=== PATIENT | male | born 1935 | race Caucasian/White ===

== ENCOUNTER 2017-06-06 19:11 | Emergency (ER) | payer MEDICARE, BC ==
[2017-06-06] MEDS ORDERED: Sodium Chloride 0.9% 10 ML Syringe FLUSH PRN (19:31)
[2017-06-06] MEDS ORDERED: Sodium Chloride 0.9% 1,000 ML IV SCH (20:15)
--- NOTE | 2017-06-06 21:05 | EDM.PDOC ---
ED HPI GENERAL MEDICAL PROBLEM - General Chief Complaint: Neurological Problem Stated Complaint: FALL Time Seen by Provider: 06/06/17 19:27 Source of Information: Reports: Patient, Family ( and Neighbors), RN History Limitations: Reports: No Limitations - History of Present Illness INITIAL COMMENTS - FREE TEXT/NARRATIVE: Syncope ; this is a 81 year old male present to ER via Family and friends. Today at 1840 pm, he was grilling at the [place], when he fainted. He fell on the grill, knocking it over, he had brief LOC, no tremors. After waking up, was momentarily confused and slurred speech. This resolved prior to arrival at ER. At this time, he has no complaints. denies chest pain, shortness of breath, headache, or any complaints. Onset: Sudden Onset Date: 06/06/17 Onset Time: 18:40 Duration: Resolved Prior to Arrival Location: Reports: Generalized Severity: Mild Improves with: Reports: None Worsens with: Reports: None Associated Symptoms: Reports: No Other Symptoms - Related Data Allergies Allergy/AdvReac Type Severity Reaction Status Date / Time amoxicillin [Amoxicillin] Allergy Nausea and Verified 06/06/17 19:21 Vomiting amoxicillin trihydrate Allergy Vomiting Verified 06/06/17 19:21 [From Augmentin] potassium clavulanate Allergy Nausea and Verified 06/06/17 19:21 [From Augmentin] Vomiting dust mites Allergy Sneezing Uncoded 09/03/15 07:20 pollen Allergy Sneezing Uncoded 09/03/15 07:20 Home Meds: Home Meds Ascorbic Acid [Vitamin C] 1,000 mg PO DAILY 10/08/13 [History] Aspirin [Halfprin] 81 mg PO DAILY 10/08/13 [History] Cyanocobalamin (Vitamin B-12) [Vitamin B-12] 500 mcg PO TID 10/08/13 [History] Multivitamin with Minerals [Multiple Vitamin] 1 tab PO DAILY 10/08/13 [History] Saw [place] Fruit [Saw [place]] 1 tab PO QID 10/08/13 [History] Timolol Maleate [Timoptic 0.5% Ophth Soln] 1 drop EYEBOTH BEDTIME 10/08/13 [ History] Triamcinolone Acetonide [Kenalog 0.1% Oint] 1 applic TOP BID PRN 10/08/13 [ History] Folic Acid 0.4 mg PO TID 09/01/15 [History] L.acidoph,Paracasei, B.lactis [Probiotic] 1 cap PO DAILY 09/01/15 [History] Ubidecarenone [Coq-10] 200 mg PO TID 09/01/15 [History] Past Medical History HEENT History: Reports: Allergic Rhinitis, Cataract, Glaucoma, Hard of Hearing, Impaired Vision, Sinusitis Gastrointestinal History: Reports: Chronic Constipation Musculoskeletal History: Reports: Back Pain, Chronic, Osteoarthritis Neurological History: Reports: Head Trauma, Neuropathy, Peripheral - Past Surgical History HEENT Surgical History: Reports: Cataract Surgery, Tonsillectomy GI Surgical History: Reports: Colonoscopy Oncologic Surgical History: Reports: Biopsy of Breast Social & Family History - Tobacco Use Smoking Status *Q: Never Smoker Years of Tobacco use: 10 Used Tobacco, but Quit: Yes Month Tobacco Last Used: 11/1970 Second Hand Smoke Exposure: No - Alcohol Use Days Per Week of Alcohol Use: 7 Number of Drinks Per Day: 1 Total Drinks Per Week: 7 - Recreational Drug Use Recreational Drug Use: No - Living Situation & Occupation Living situation: Reports: Occupation: Retired (retired, lives on [facility] with .) ED RUST GENERAL - Review of Systems Review Of Systems: See Below Constitutional: Reports: No Symptoms HEENT: Reports: No Symptoms Respiratory: Reports: No Symptoms Cardiovascular: Reports: No Symptoms Endocrine: Reports: No Symptoms GI/Abdominal: Reports: No Symptoms : Reports: No Symptoms Musculoskeletal: Reports: No Symptoms Skin: Reports: Bruising, Wound (abrasion noted to left chest, left knee, right forearm) Neurological: Reports: Syncope Psychiatric: Reports: No Symptoms Hematologic/Lymphatic: Reports: No Symptoms Immunologic: Reports: No Symptoms - Physical Exam Exam: See Below Exam Limited By: No Limitations General Appearance: Alert, WD/WN, No Apparent Distress Eye Exam: Bilateral Eye: EOMI, Normal Inspection, PERRL Ears: Normal External Exam, Normal Canal, Hearing Grossly Normal, Normal TMs Nose: Normal Inspection, Normal Mucosa, No Blood Throat/Mouth: Normal Inspection, Normal Lips, Normal Teeth, Normal Gums, Normal Oropharynx, Normal Voice, No Airway Compromise Head Exam: Atraumatic, Normocephalic Neck: Normal Inspection Respiratory/Chest: No Respiratory Distress, Lungs Clear, Normal Breath Sounds, No Accessory Muscle Use, Chest Non-Tender Cardiovascular: Normal Peripheral Pulses, Regular Rate, Rhythm, No Edema, No Gallop, No JVD, No Murmur, No Rub GI/Abdominal: Normal Bowel Sounds, Soft, Non-Tender, No Organomegaly, No Distention, No Abnormal Bruit, No Mass (Male) Exam: Deferred Rectal (Males) Exam: Deferred Neuro Exam (Abbreviated): Alert, Oriented, CN II-XII Intact, Normal Cognition, Normal Reflexes, No Motor/Sensory Deficits Back Exam: Normal Inspection, Full Range of Motion, NT Extremities: Normal Inspection, Normal Range of Motion, Non-Tender, No Pedal Edema, Normal Capillary Refill Psychiatric: Normal Affect Skin Exam: Warm, Dry, Other (minor abrasions to right forearm, left lateral ribs , left knee.) EKG INTERPRETATION Rhythm: NSR [place]: Normal P-Wave: Present QRS: Normal ST-T: Normal QT: Normal Course - Vital Signs Last Recorded V/S: Last Vital Signs Temp 36.4 C 06/06/17 19:18 Pulse 66 06/06/17 20:47 Resp 16 06/06/17 20:47 BP 137/73 06/06/17 20:47 Pulse Ox 97 06/06/17 20:47 - Orders/Labs/Meds Orders: Active Orders 24 hr Category Date Time Status Cardiac Monitoring [RC] .As Directed Care 06/06/17 19:30 Active EKG Documentation Completion [RC] ASDIRECTED Care 06/06/17 19:31 Active Chest 2V [CR] Urgent Exams 06/06/17 19:30 Taken Head wo Cont [CT] Stat Exams 06/06/17 19:28 Taken Sodium Chloride 0.9% [Normal Saline] 1,000 ml Med 06/06/17 20:15 Active IV ASDIRECTED Sodium Chloride 0.9% [Saline Flush] Med 06/06/17 19:31 Active 10 ml FLUSH ASDIRECTED PRN Saline Lock Insert [OM.PC] Routine Oth 06/06/17 19:31 Ordered EKG 12 Lead [EK] Urgent Ther 06/06/17 19:29 Ordered Medication Orders Sodium Chloride (Normal Saline) 1,000 mls @ 500 mls/hr IV ASDIRECTED TONJA Last Admin: 06/06/17 20:11 Dose: 500 mls/hr Sodium Chloride (Saline Flush) 10 ml FLUSH ASDIRECTED PRN PRN Reason: Keep Vein Open Last Admin: 06/06/17 19:59 Dose: 10 ml Labs: Laboratory Tests 06/06/17 06/06/17 06/06/17 Range/Units 19:30 19:30 19:30 WBC 6.5 (4.5-11.0) K/uL RBC 4.82 (4.30-5.90) M/uL Hgb 15.8 H (12.0-15.0) g/dL Hct 47.8 (40.0-54.0) % MCV 99 H (80-98) fL MCH 33 H (27-31) pg MCHC 33 (32-36) % Plt Count 166 (150-400) K/uL Neut % (Auto) 39 (36-66) % Lymph % (Auto) 43 (24-44) % [place] % (Auto) 12 H (2-6) % Eos % (Auto) 5 H (2-4) % Baso % (Auto) 1 (0-1) % PT 11.4 (9.5-12.0) sec INR 1.06 (0.80-1.20) Sodium 142 (140-148) mmol/L Potassium 4.2 (3.6-5.2) mmol/L Chloride 106 (100-108) mmol/L Carbon Dioxide 29 (21-32) mmol/L Anion Gap 6.8 (5.0-14.0) mmol/L BUN 14 (7-18) mg/dL Creatinine 1.0 (0.8-1.3) mg/dL Est Cr Clr Drug Dosing 61.43 mL/min Estimated GFR (MDRD) > 60 (>60) Glucose 90 (74-106) mg/dL Calcium 8.8 (8.5-10.1) mg/dL Magnesium (1.8-2.4) mg/dL Total Bilirubin 0.4 (0.2-1.0) mg/dL AST 19 (15-37) U/L ALT 20 (12-78) U/L Alkaline Phosphatase 50 (46-116) U/L Troponin I (0.000-0.056) ng/mL Total Protein 8.0 (6.4-8.2) g/dL Albumin 3.8 (3.4-5.0) g/dL Globulin 4.2 H (2.3-3.5) g/dL Albumin/Globulin Ratio 0.9 L (1.2-2.2) Amylase (25-115) U/L Lipase (73-393) U/L TSH, Ultra Sensitive (0.358-3.740) uIU/mL Urine Color Urine Appearance Urine pH (4.5-8.0) Ur Specific [place] (1.008-1.030) Urine Protein (NEGATIVE) mg/dL Urine Glucose (UA) (NEGATIVE) mg/dL Urine Ketones (NEGATIVE) mg/dL Urine Occult Blood (NEGATIVE) Urine Nitrite (NEGAITVE) Urine Bilirubin (NEGATIVE) Urine Urobilinogen (NORMAL) mg/dL Ur Leukocyte Esterase (NEGATIVE) Urine RBC (0-5) Urine WBC (0-5) Ur Epithelial Cells Amorphous Sediment Urine Bacteria Urine Mucus 06/06/17 06/06/17 Range/Units 19:30 20:01 WBC (4.5-11.0) K/uL RBC (4.30-5.90) M/uL Hgb (12.0-15.0) g/dL Hct (40.0-54.0) % MCV (80-98) fL MCH (27-31) pg MCHC (32-36) % Plt Count (150-400) K/uL Neut % (Auto) (36-66) % Lymph % (Auto) (24-44) % [place] % (Auto) (2-6) % Eos % (Auto) (2-4) % Baso % (Auto) (0-1) % PT (9.5-12.0) sec INR (0.80-1.20) Sodium (140-148) mmol/L Potassium (3.6-5.2) mmol/L Chloride (100-108) mmol/L Carbon Dioxide (21-32) mmol/L Anion Gap (5.0-14.0) mmol/L BUN (7-18) mg/dL Creatinine (0.8-1.3) mg/dL Est Cr Clr Drug Dosing mL/min Estimated GFR (MDRD) (>60) Glucose (74-106) mg/dL Calcium (8.5-10.1) mg/dL Magnesium 2.3 (1.8-2.4) mg/dL Total Bilirubin (0.2-1.0) mg/dL AST (15-37) U/L ALT (12-78) U/L Alkaline Phosphatase (46-116) U/L Troponin I < 0.017 (0.000-0.056) ng/mL Total Protein (6.4-8.2) g/dL Albumin (3.4-5.0) g/dL Globulin (2.3-3.5) g/dL Albumin/Globulin Ratio (1.2-2.2) Amylase 81 (25-115) U/L Lipase 272 (73-393) U/L TSH, Ultra Sensitive 3.545 (0.358-3.740) uIU/mL Urine Color Yellow Urine Appearance Clear Urine pH 5.0 (4.5-8.0) Ur Specific [place] 1.010 (1.008-1.030) Urine Protein Negative (NEGATIVE) mg/dL Urine Glucose (UA) Normal (NEGATIVE) mg/dL Urine Ketones Negative (NEGATIVE) mg/dL Urine Occult Blood Negative (NEGATIVE) Urine Nitrite Negative (NEGAITVE) Urine Bilirubin Negative (NEGATIVE) Urine Urobilinogen Normal (NORMAL) mg/dL Ur Leukocyte Esterase Negative (NEGATIVE) Urine RBC Not seen (0-5) Urine WBC 0-5 (0-5) Ur Epithelial Cells Rare Amorphous Sediment Not seen Urine Bacteria Rare Urine Mucus Not seen Meds: Medications Generic Name Dose Route Start Last Admin Trade Name Freq PRN Reason Stop Dose Admin Sodium Chloride 1,000 mls @ 500 mls/hr 06/06/17 20:15 06/06/17 20:11 Normal Saline IV 500 mls/hr ASDIRECTED TONJA Administration Sodium Chloride 10 ml 06/06/17 19:31 06/06/17 19:59 Saline Flush FLUSH 10 ml ASDIRECTED PRN Administration Keep Vein Open - Re-Assessments/Exams Free Text/Narrative Re-Assessment/Exam: 06/06/17 21:[address]; reviewed with MrMiley and Mrs. Hogue labs; no acute process, negative EKG; sinus rhythm given Normal Saline 1 liter will discharge to home, advise to rest. Departure - Departure Time of Disposition: 21:36 Disposition: Home, Self-Care 01 Condition: Good Clinical Impression: Syncope Qualifiers: Encounter type: initial encounter - Discharge Information Instructions: Syncope, [id number] Referrals: Maged Cabrera MD [Primary Care Provider] - Forms: ED Department Discharge Care Plan Goals: syncope -advise to rest -avoid strenuous activities for 2-3 days -follow up with Primary Care for recheck in next 2- 3 days return to clinic or ER if not improved or symptoms worsen. - Problem List & Annotations (1) Syncope SNOMED Code(s): 126175222 Code(s): R55 - SYNCOPE AND COLLAPSE Status: Acute Priority: Medium Current Visit: Yes Qualifiers: Encounter type: initial encounter - Problem List Review Problem List Initiated/Reviewed/Updated: Yes - My Orders Last 24 Hours: My Active Orders 06/06/17 19:28 Head wo Cont [CT] Stat 06/06/17 19:29 EKG 12 Lead [EK] Urgent 06/06/17 19:30 Cardiac Monitoring [RC] .As Directed Chest 2V [CR] Urgent 06/06/17 19:31 EKG Documentation Completion [RC] ASDIRECTED Sodium Chloride 0.9% [Saline Flush] 10 ml FLUSH ASDIRECTED PRN Saline Lock Insert [OM.PC] Routine 06/06/17 20:15 Sodium Chloride 0.9% [Normal Saline] 1,000 ml IV ASDIRECTED - Assessment/Plan Last 24 Hours: My Active Orders 06/06/17 19:28 Head wo Cont [CT] Stat 06/06/17 19:29 EKG 12 Lead [EK] Urgent 06/06/17 19:30 Cardiac Monitoring [RC] .As Directed Chest 2V [CR] Urgent 06/06/17 19:31 EKG Documentation Completion [RC] ASDIRECTED Sodium Chloride 0.9% [Saline Flush] 10 ml FLUSH ASDIRECTED PRN Saline Lock Insert [OM.PC] Routine 06/06/17 20:15 Sodium Chloride 0.9% [Normal Saline] 1,000 ml IV ASDIRECTED Plan: syncope -advise to rest -avoid strenuous activities for 2-3 days -follow up with Primary Care for recheck in next 2- 3 days return to clinic or ER if not improved or symptoms worsen.
[2017-06-06 21:43] VITALS: BP 117/79
--- NOTE | 2017-06-07 09:53 | CR ---
Chest 2V FINDINGS: The heart and vascular structures are normal in appearance. No infiltrates or effusions ar e demonstrated. The skeletal structures are unremarkable. IMPRESSION: Negative exam.
== END 2017-06-06 21:44 | disposition home or self-care (01) ==
LOC: JP.ED 19:11
DX: R55 Syncope and collapse (principal); M19.90 Unspecified osteoarthritis, unspecified site; Z98.84 Bariatric surgery status; Z98.890 Other specified postprocedural states; Z79.82 Long term (current) use of aspirin; Z79.899 Other long term (current) drug therapy; Z88.1 Allergy status to other antibiotic agents; Z91.018 Allergy to other foods; Z91.048 Other nonmedicinal substance allergy status; W19.XXXA Unspecified fall, initial encounter
CPT/HCPCS: 36415; 70450; 71020; 80053; 81001; 82150; 83690; 83735; 84443; 84484; 85025; 85610; 93005; 96360; 99285; J7040; J7050; 93010; 99284

== ENCOUNTER 2020-05-28 19:57 | Emergency (ER) | payer BC, MEDICARE ==
[2020-05-28] MEDS ORDERED: Lidocaine 1% with EPINEPHrine 1:100,000 50 ML MDV SUBCUT STA (21:01)
[2020-05-28] MEDS ORDERED: Diphtheria,Pertussis(Acell),Tetanus Vaccine 0.5 ML SDV IM ONE (21:01)
[2020-05-28 21:02] VITALS: BP 164/95; PULSE 82
[2020-05-28] MEDS ORDERED: Bacitracin Oint 1 GM U/D Packet TOP ONE (21:02)
--- NOTE | 2020-05-28 21:07 | EDM.PDOC ---
ED HPI GENERAL MEDICAL PROBLEM - General Chief Complaint: Laceration Stated Complaint: CUT TO HEAD Time Seen by Provider: 05/28/20 20:55 Source of Information: Reports: Patient, Old Records, RN History Limitations: Reports: No Limitations - History of Present Illness INITIAL COMMENTS - FREE TEXT/NARRATIVE: 84 yo male lost his balance at home and fell into his sink hitting his scalp on a faucet incurring a laceration. He denies LOC, nausea, or neck pain. Last tetanus was 8 yrs ago. Onset: Today, Sudden Onset Date: 05/28/20 Duration: Minutes:, Constant Location: Reports: Head Quality: Reports: Dull Severity: Mild Improves with: Reports: None Worsens with: Reports: None Context: Reports: Trauma Associated Symptoms: Reports: No Other Symptoms Treatments METAL DEALER: Reports: Dressing(s) Head Pain Score (Numeric/FACES): 2 - Related Data Allergies Allergy/AdvReac Type Severity Reaction Status Date / Time amoxicillin [Amoxicillin] Allergy Nausea and Verified 05/28/20 20:59 Vomiting amoxicillin trihydrate Allergy Vomiting Verified 05/28/20 20:59 [From Augmentin] potassium clavulanate Allergy Nausea and Verified 05/28/20 20:59 [From Augmentin] Vomiting dust mites Allergy Sneezing Uncoded 05/28/20 20:59 pollen Allergy Sneezing Uncoded 05/28/20 20:59 Home Meds: Home Meds Ascorbic Acid [Vitamin C] 1,000 mg PO DAILY 10/08/13 [History] Aspirin [Halfprin] 81 mg PO DAILY 10/08/13 [History] Cyanocobalamin (Vitamin B-12) [Vitamin B-12] 500 mcg PO TID 10/08/13 [History] Multivitamin with Minerals [Multiple Vitamin] 1 tab PO DAILY 10/08/13 [History] Saw [place] Fruit [Saw [place]] 1 tab PO QID 10/08/13 [History] Triamcinolone Acetonide [Kenalog 0.1% Oint] 1 applic TOP BID PRN 10/08/13 [History] timoloL maleate [Timoptic 0.5% Ophth Soln] 1 drop EYEBOTH BEDTIME 10/08/13 [History] Folic Acid 0.4 mg PO TID 09/01/15 [History] L.acidoph,Paracasei, B.lactis [Probiotic] 1 cap PO DAILY 09/01/15 [History] Ubidecarenone [Coq-10] 200 mg PO TID 09/01/15 [History] Past Medical History HEENT History: Reports: Allergic Rhinitis, Cataract, Glaucoma, Hard of Hearing, Impaired Vision, Sinusitis Gastrointestinal History: Reports: Chronic Constipation Musculoskeletal History: Reports: Back Pain, Chronic, Osteoarthritis Neurological History: Reports: Head Trauma, Neuropathy, Peripheral - Past Surgical History HEENT Surgical History: Reports: Cataract Surgery, Tonsillectomy GI Surgical History: Reports: Colonoscopy Oncologic Surgical History: Reports: Biopsy of Breast Social & Family History - Living Situation & Occupation Living situation: Reports: Occupation: Retired (retired, lives on [facility] with .) ED ROS GENERAL - Review of Systems Review Of Systems: See Below Constitutional: Reports: No Symptoms HEENT: Reports: No Symptoms Respiratory: Reports: No Symptoms Cardiovascular: Reports: No Symptoms GI/Abdominal: Reports: No Symptoms : Reports: No Symptoms Musculoskeletal: Reports: No Symptoms Skin: Reports: Wound (scalp laceration frontal area) Neurological: Reports: No Symptoms ED EXAM, SKIN/RASH Exam: See Below Exam Limited By: No Limitations General Appearance: Alert, WD/WN, No Apparent Distress Eye Exam: Bilateral Eye: Normal Inspection Ears: Normal External Exam, Normal Canal, Hearing Loss Nose: Normal Inspection, No Blood Throat/Mouth: Normal Inspection, Normal Lips, Normal Oropharynx, Normal Voice, No Airway Compromise Head: Normocephalic, Other (frontal scalp laceration) Neck: Normal Inspection, Supple, Non-Tender Cardiovascular: Regular Rate, Rhythm Extremities: Normal Inspection, Normal Range of Motion, Non-Tender, No Pedal Edema Neurological: Alert, Oriented, CN II-XII Intact, Normal Cognition, No Motor/Sens ory Deficits Psychiatric: Normal Affect, Normal Mood Skin: Warm, Dry, Normal Color, No Rash, Wound/Incision (large anterior scalp laceration present. ). No: Intact Location, Skin: Head Characteristics: Linear Associated features: Tenderness. No: Warmth, Induration, Lymphangitis ED SKIN PROCEDURES - Laceration/Wound Repair Anterior Head Appearance: Subcutaneous, Linear, Clean Distal NVT: Neuro & Vascular Intact, No Tendon Injury Anesthetic Type: Local Local Anesthesia - Lidocaine (Xylocaine): 1% with EPI Local Anesthetic Volume: Other (8 ml) Skin Prep: Saline Saline Irrigation (cc's): 60 Exploration/Debridement/Repair: Wound Explored, Explored to Base, No Foreign Material Found Closed with: Sutures Lac/Wound length In cm: 5 Suture Size: 4-0 # of Sutures: 13 Suture Type: Prolene, Nylon, Mattress (4-0 vertical mattress sutures and 5-0 Prolene simple interrupteds) Drain Placement: No Sterile Dressing Applied: Nurse Tetanus Status Addressed: Yes Complications: No Course - Vital Signs Last Recorded V/S: Last Vital Signs Temp 37.2 C 05/28/20 21:01 Pulse 82 05/28/20 21:01 Resp 16 05/28/20 21:01 BP 164/95 H 05/28/20 21:01 Pulse Ox 98 05/28/20 21:01 - Orders/Labs/Meds Orders: Active Orders 24 hr Category Date Time Status Vaccines to be Administered [RC] PER UNIT ROUTINE Care 05/28/20 21:01 Active Meds: Medications Discontinued Medications Generic Name Dose Route Start Last Admin Trade Name Clare PRN Reason Stop Dose Admin Bacitracin 2 dose 05/28/20 21:02 05/28/20 21:18 Bacitracin Oint 1 Gm TOP 05/28/20 21:03 2 dose ONETIME ONE Administration Diphtheria/Tetanus/Acell Pertussis 0.5 ml 05/28/20 21:01 05/28/20 21:17 Adacel IM 05/28/20 21:02 0.5 ml .ONCE ONE Administration Lidocaine/Epinephrine 10 ml 05/28/20 21:01 05/28/20 21:19 Xylocaine 1% With Epinephrine 1:100,000 SUBCUT 05/28/20 21:02 10 ml STAT STA Administration Departure - Departure Time of Disposition: 21:50 Disposition: Home, Self-Care 01 Condition: Good Clinical Impression: Scalp laceration Qualifiers: Encounter type: initial encounter Qualified Code(s): S01.01XA - Laceration without foreign body of scalp, initial encounter - Discharge Information *PRESCRIPTION DRUG MONITORING PROGRAM REVIEWED*: No *COPY OF PRESCRIPTION DRUG MONITORING REPORT IN PATIENT ANJUM: No Instructions: Sutured Wound Care, [id number] Referrals: Maged Cabrera MD [Primary Care Provider] - Forms: ED Department Discharge Additional Instructions: Clean wound twice daily with 1/2 water and 1/2 peroxide. Dry. Apply antibiotic ointment. Take acetaminophen for pain relief. Stitches out in next Sunday afternoon or Sunday. Recheck for signs of infection. Sepsis Event Note (ED) - Evaluation Sepsis Screening Result: No Definite Risk - Focused Exam Vital Signs: Vital Signs Temp Pulse Resp BP Pulse Ox 05/28/20 21:01 37.2 C 82 16 164/95 H 98 - My Orders Last 24 Hours: My Active Orders 05/28/20 21:01 Vaccines to be Administered [RC] PER UNIT ROUTINE - Assessment/Plan Last 24 Hours: My Active Orders 05/28/20 21:01 Vaccines to be Administered [RC] PER UNIT ROUTINE
== END 2020-05-28 22:11 | disposition home or self-care (01) ==
LOC: JP.ED 19:57
DX: S01.01XA Laceration without foreign body of scalp, initial encounter (principal); M19.90 Unspecified osteoarthritis, unspecified site; G62.9 Polyneuropathy, unspecified; Z88.1 Allergy status to other antibiotic agents; Z88.8 Allergy status to other drugs, medicaments and biological substances; Z79.82 Long term (current) use of aspirin; Z79.899 Other long term (current) drug therapy; Z23 Encounter for immunization; W20.8XXA Other cause of strike by thrown, projected or falling object, initial encounter; Y92.009 Unspecified place in unspecified non-institutional (private) residence as the place of occurrence of the external cause
CPT/HCPCS: 12002; 12013; 90471; 90715; 99282